=== PATIENT | male | born 1960 | race Caucasian/White ===

== ENCOUNTER 2017-07-24 20:03 | Inpatient (IN) | payer OTHER ==
[~2017-07-24] VITALS: Ht 182.9 cm; Wt 86.0 kg
[~2017-07-24 20:03] MED LIST: ALBU8.5H8 IH; AMLO10TA28 PO; AMLO5TAB16 PO; AZIT250T PO; LIDO700A5 TOP; METO50TA16 PO; MULT-933 PO; PRED10TA PO; etomidate 2mg/ml inj. ONE; rocuronium 10mg/ml inj IV ONE
[2017-07-24] MEDS ORDERED: normal saline 1000ML IV soln IVB ONE ×2 (20:35→22:35)
[2017-07-24] MEDS ORDERED: methylPREDNISolone sod succ 125mg/2ml vial IV ONE (20:35)
[2017-07-24] MEDS ORDERED: LORazepam 2 mg/ml vial IV ONE (20:35)
[2017-07-24] MEDS ORDERED: ipratropium 0.5 MG/2.5ML nebule IH ONE (20:35)
[2017-07-24] MEDS ORDERED: CARV-50 PO (20:54)
[2017-07-24] MEDS ORDERED: ONDA4TAB9 SL (20:54)
[2017-07-24] MEDS ORDERED: METO100T14 PO (20:54)
[2017-07-24] MEDS ORDERED: CETI10TA15 PO (20:54)
[2017-07-24 21:02] LABS: PROTHROMBIN TIME 10.3 SECONDS (9.0-12.0)
[2017-07-24 21:06] LABS: BASOPHILS # (AUTO) 0.1 X10'3 (0-0.2); BASOPHILS % (AUTO) 0.4 % (0-1); EOSINOPHILS # (AUTO) 0.1 X10'3 (0-0.9); EOSINOPHILS % (AUTO) 0.7 % (0-6); HEMATOCRIT 46.3 % (42.0-52.0); HEMOGLOBIN 15.6 g/dl (14.0-17.9); LYMPHOCYTES # (AUTO) 2.9 X10'3 (1.1-4.8); LYMPHOCYTES % (AUTO) 14.9 % (21-51); MEAN CORPUSCULAR HEMOGLOBIN 35.8 PG (27.0-31.0); MEAN CORPUSCULAR HGB CONC 33.7 % (33.0-36.5); MEAN CORPUSCULAR VOLUME 106.4 FL (78-98); MEAN PLATELET VOLUME 7.3 FL (7.4-10.4); MONOCYTES # (AUTO) 1.7 X10'3 (0-0.9); MONOCYTES % (AUTO) 8.5 % (2-12); NEUTROPHILS # (AUTO) 14.8 X10'3 (1.8-7.7); NEUTROPHILS % (AUTO) 75.5 % (42-75); PLATELET COUNT 302 X10'3 (140-440); RED BLOOD COUNT 4.35 X10'6 (4.70-6.10); RED CELL DISTRIBUTION WIDTH 15.8 % (11.5-14.5); WHITE BLOOD COUNT 19.7 X10'3 (4.5-11.0)
[2017-07-24] MEDS ORDERED: ipratropium/albuterol 3ml nebule NEB ONE (21:10)
[2017-07-24 21:19] LABS: ALANINE AMINOTRANSFERASE 295 U/L (12-78); ALBUMIN 3.7 G/DL (3.4-5.0); ALBUMIN/GLOBULIN RATIO 0.9 (1.1-1.5); ALKALINE PHOSPHATASE 125 IU/L (46-116); ANION GAP 5 (8-16); ASPARTATE AMINO TRANSFERASE 213 U/L (10-37); BILIRUBIN,TOTAL 0.4 MG/DL (0.1-1.0); BLOOD UREA NITROGEN 28 MG/DL (7-18); BUN/CREATININE RATIO 23.7 (5.4-32.0); CALCIUM 8.4 MG/DL (8.5-10.1); CHLORIDE 102 MMOL/L (99-107); CREATININE 1.18 MG/DL (0.60-1.10); ETHANOL 0.123 GM/DL (0.0-0.010); GLUCOSE 105 MG/DL (70-104); MAGNESIUM 2.1 MG/DL (1.5-2.4); SODIUM 141 MMOL/L (135-145); TOTAL CARBON DIOXIDE 34.3 MMOL/L (24-32); TOTAL PROTEIN 7.6 G/DL (6.4-8.2); eGFR 63 ML/MIN
[2017-07-24] MEDS ORDERED: naloxone 0.4 mg/ml inj IV ONE ×3 (22:05→22:15)
[2017-07-24 22:11] LABS: ABG BASE EXCESS -1.1 mmol/L (-2.0-3.0); ABG HCO3 30.4 mmol/L (22.0-26.0); ABG OXYGEN SATURATION 94.3 % (95-98); ABG PCO2 (T) 86.7 mmHg (35.0-48.0); ABG PH (T) 7.162 (7.350-7.450); ABG PO2 (T) 83.5 mmHg (83-108); ALLEN'S TEST Positive; FCOHb 1.4 % (0.5-1.5); FLOW 3 L/min; FMetHb 0.2 % (0.3-1.12); FO2Hb 92.8 % (94-100); PATIENT TEMPERATURE 36.9; TOTAL HEMOGLOBIN 15.2 G/dl (14.0-18.0)
[2017-07-24] MEDS ORDERED: succinylcholine 20mg/ml inj IV ONE (22:15)
[2017-07-24] MEDS ORDERED: midazolam 100mg in NS 100ml 100 ML IV PRN (22:17)
[2017-07-24] MEDS ORDERED: hydrALAZINE 20mg/ml inj. IV ONE (22:20)
[2017-07-24] MEDS ORDERED: midazolam 2 mg/2 ml injection IV PRN (22:20)
[2017-07-24] MEDS ORDERED: vancomycin/NS 1 GM ADD-VANTAGE 250 ML X 1 DOSE IV ONE (22:30)
[2017-07-24] MEDS ORDERED: CefTRIAXone 2gm/NS 100ml IVPB 100 ML IV ONE (22:30)
[2017-07-24] MEDS ORDERED: clindamycin-Cleocin 900mg/D5W 50 ML IV ONE (22:35)
[2017-07-24] MEDS ORDERED: morphine 4 MG/ML inj SYRINge IV ONE ×2 (22:45→23:05)
[2017-07-24] MEDS ORDERED: labetalol 20mg/4ml (5mg/ml) syringe IV PRN (22:50)
[2017-07-24] MEDS ORDERED: VECuronium br 10mg inj. IV ONE (22:50)
[2017-07-24 23:01] LABS: CLARITY,URINE CLEAR (Clear); COLOR,URINE YELLOW (Yellow); GLUCOSE, URINE NEGATIVE (Neg); KETONES,URINE NEGATIVE (Neg); LEUKOCYTE ESTERASE ,URINE NEGATIVE (Neg); NITRITES, URINE NEGATIVE (Neg); OCCULT BLOOD,URINE TRACE-LYSED (Neg); PH,URINE 5.5 (4.8-8.0); PROTEIN,URINE 100 mg/dl (Neg); UROBILINOGEN,URINE 0.2 E.U/dL (0.2-1.0)
[2017-07-24 23:02] LABS: UA COLLECTION TYPE FOLEY CATH
[2017-07-24 23:08] LABS: WBC,URINE 0-4 /HPF (0-4)
[2017-07-24] MEDS: meropenem inj 500 MG in normal saline 100ml IV soln 100 ML IV SCH (23:08)
[2017-07-24 23:09] LABS: BACTERIA,URINE FEW /HPF (Neg)
[2017-07-24 23:10] LABS: AMORPHOUS URATES 2+; MUCUS STRANDS NONE SEEN /LPF (Neg); SQUAMOUS EPITHELIAL CELL,UR FEW /LPF (FEW); TRANSITIONAL EPI CELLS,URINE FEW /HPF
[2017-07-24 23:11] LABS: CELLULAR CAST 0-4 /LPF (NEGATIVE)
[2017-07-24 23:12] LABS: COARSE GRANULAR CAST 0-3 /LPF (NEGATIVE)
[2017-07-24 23:14] LABS: URINE AMPHETAMINE SCREEN POSITIVE (Neg); URINE BARBITUATE SCREEN NEGATIVE (Neg); URINE BENZODIAZEPINES SCREEN POSITIVE (Neg); URINE CANNABINOID SCREEN NEGATIVE (Neg); URINE COCAINE SCREEN NEGATIVE (Neg); URINE METHADONE SCREEN POSITIVE (Neg); URINE OPIATE SCREEN POSITIVE (Neg); URINE PHENCYCLIDINE SCREEN NEGATIVE (Neg)
[2017-07-24] MEDS ORDERED: FENTANYL-0.9 % NACL/PF 100 ML IV PRN (23:20)
[2017-07-24] MEDS ORDERED: fentaNYL/PF 50MCG/1 ML 2ML syringe IV PRN (23:20)
[2017-07-24] MEDS ORDERED: magnesium 4gm in 100ml NS 100 ML IV PRN (23:45)
[2017-07-24] MEDS ORDERED: magnesium Cl slow-release 64mg tablet PO PRN (23:45)
[2017-07-24] MEDS ORDERED: potassium Cl 20 mEq SR tablet PO PRN ×2 (23:45)
[2017-07-24] MEDS ORDERED: magnesium 2GM in 50ml NS 50 ML IV PRN (23:45)
[2017-07-24] MEDS ORDERED: dextrose 50%-water 50ml dispensing syringe IV PRN (23:45)
[2017-07-24] MEDS ORDERED: potassium Cl 40MEQ/NS 500ml 500 ML IV PRN ×2 (23:45)
[2017-07-24] MEDS: folic acid inj. 2 MG, thiamine inj. 100 MG, MVI, adult No.4 with vit. K 10 ML in dextro... IV SCH ×4 (23:45)
[2017-07-25] VITALS (22 sets, daily range): BP systolic 108–187; BP diastolic 70–105
[2017-07-25 00:15] LABS: ABG BASE EXCESS -5.9 mmol/L (-2.0-3.0); ABG HCO3 25.3 mmol/L (22.0-26.0); ABG OXYGEN SATURATION 96.9 % (95-98); ABG PH (T) 7.132 (7.350-7.450); ABG PO2 (T) 106.6 mmHg (83-108); ALLEN'S TEST Positive; FCOHb 1.6 % (0.5-1.5); FMetHb 0.2 % (0.3-1.12); FO2Hb 95.2 % (94-100); MINUTE VOLUME 10 L/min; PATIENT TEMPERATURE 36.4; PEEP 5 cm H2O; RESPIRATORY RATE 20 b/min; RESPIRATORY RATE (OBSERVED) 20 b/min; TIDAL VOLUME 450 mL; TOTAL HEMOGLOBIN 14.7 G/dl (14.0-18.0)
[2017-07-25] MEDS ORDERED: fentaNYL/PF 50MCG/1 ML 2ML syringe IV PRN (00:15)
[2017-07-25] MEDS ORDERED: VECuronium br 10mg inj. IV ONE ×2 (00:15→00:35)
[2017-07-25] MEDS ORDERED: midazolam 2 mg/2 ml injection IV ONE (00:15)
[2017-07-25] MEDS: ipratropium/albuterol 3ml nebule NEB SCH ×5 (00:56→19:14)
[2017-07-25] MEDS: normal saline 1000ml 1,000 ML IV SCH ×2 (01:51→04:30)
[2017-07-25] MEDS: pantoprazole 40 MG vial IV SCH ×2 (01:59→08:30)
[2017-07-25] MEDS: meropenem inj 500 MG in normal saline 100ml IV soln 100 ML IV SCH ×2 (02:00→08:30)
[2017-07-25] MEDS ORDERED: clindamycin 600mg/D5W 50ml 50 ML IV SCH (02:00)
[2017-07-25] MEDS ORDERED: levoFLOXACIN-Levaquin 750MG/D5 150 ML IV ONE (02:15)
[2017-07-25 03:35] LABS: ABG BASE EXCESS 0.6 mmol/L (-2.0-3.0); ABG PCO2 (T) 58.7 mmHg (35.0-48.0); ABG PH (T) 7.303 (7.350-7.450); ABG PO2 (T) 100.1 mmHg (83-108); ALLEN'S TEST Positive; FCOHb 0.7 % (0.5-1.5); FMetHb 0.1 % (0.3-1.12); FO2Hb 97.2 % (94-100); MINUTE VOLUME 12 L/min; PATIENT TEMPERATURE 35.4; PEEP 5 cm H2O; RESPIRATORY RATE 24 b/min; RESPIRATORY RATE (OBSERVED) 24 b/min; TIDAL VOLUME 450 mL; TOTAL HEMOGLOBIN 14.8 G/dl (14.0-18.0)
[2017-07-25] MEDS: albuterol 2.5 MG/3 ML nebule NEB PRN ×2 (03:42→23:17)
[2017-07-25] MEDS: midazolam 100mg in NS 100ml 100 ML IV PRN ×4 (04:30→22:46)
[2017-07-25] MEDS: FENTANYL-0.9 % NACL/PF 100 ML IV PRN ×3 (04:36→19:19)
[2017-07-25 05:48] LABS: BASOPHILS % (AUTO) 0.1 % (0-1); EOSINOPHILS # (AUTO) 0.1 X10'3 (0-0.9); HEMATOCRIT 41.7 % (42.0-52.0); HEMOGLOBIN 14.1 g/dl (14.0-17.9); LYMPHOCYTES # (AUTO) 0.5 X10'3 (1.1-4.8); LYMPHOCYTES % (AUTO) 3.4 % (21-51); MEAN CORPUSCULAR HEMOGLOBIN 35.9 PG (27.0-31.0); MEAN CORPUSCULAR HGB CONC 33.8 % (33.0-36.5); MEAN CORPUSCULAR VOLUME 106.2 FL (78-98); MEAN PLATELET VOLUME 7.4 FL (7.4-10.4); MONOCYTES # (AUTO) 0.4 X10'3 (0-0.9); MONOCYTES % (AUTO) 2.6 % (2-12); NEUTROPHILS % (AUTO) 92.9 % (42-75); PLATELET COUNT 180 X10'3 (140-440); RED BLOOD COUNT 3.92 X10'6 (4.70-6.10); RED CELL DISTRIBUTION WIDTH 15.6 % (11.5-14.5); WHITE BLOOD COUNT 15.1 X10'3 (4.5-11.0)
[2017-07-25 05:59] LABS: PARTIAL THROMBOPLASTIN TIME 22 SECONDS (22-32); PROTHROMBIN TIME 10.5 SECONDS (9.0-12.0)
[2017-07-25 06:10] LABS: ALANINE AMINOTRANSFERASE 398 U/L (12-78); ALBUMIN 2.8 G/DL (3.4-5.0); ALBUMIN/GLOBULIN RATIO 0.9 (1.1-1.5); ALKALINE PHOSPHATASE 96 IU/L (46-116); ANION GAP 7 (8-16); ASPARTATE AMINO TRANSFERASE 401 U/L (10-37); BILIRUBIN,TOTAL 0.7 MG/DL (0.1-1.0); BLOOD UREA NITROGEN 27 MG/DL (7-18); BUN/CREATININE RATIO 26.2 (5.4-32.0); CALCIUM 7.8 MG/DL (8.5-10.1); CHLORIDE 106 MMOL/L (99-107); CREATININE 1.03 MG/DL (0.60-1.10); GLUCOSE 129 MG/DL (70-104); MAGNESIUM 1.9 MG/DL (1.5-2.4); POTASSIUM 4.4 MMOL/L (3.5-5.1); SODIUM 143 MMOL/L (135-145); TOTAL CARBON DIOXIDE 30.4 MMOL/L (24-32); TOTAL PROTEIN 5.9 G/DL (6.4-8.2); TROPONIN I < 0.04 NG/ML (0.0-0.05); eGFR 74 ML/MIN
[2017-07-25] MEDS: lactobacillus rhamnosus 10,000 MMU CELLS/CAPSULE PO SCH ×2 (08:29→16:45)
[2017-07-25] MEDS: heparin, porcine 5000 units/ml vial SQ SCH ×2 (08:30→21:05)
[2017-07-25] MEDS: docusate sod 100mg capsule PO SCH ×2 (08:31→21:05)
[2017-07-25] MEDS: methylPREDNISolone sod succ 125mg/2ml vial IV SCH ×3 (08:31→21:01)
[2017-07-25] MEDS: levoFLOXACIN-Levaquin 750MG/D5 150 ML IV SCH (09:19)
[2017-07-25] MEDS: vancomycin inj 1,250 MG in normal saline 250ml IV soln 250 ML IV SCH ×2 (10:40→17:08)
[2017-07-25] MEDS: folic acid inj. 2 MG, thiamine inj. 100 MG, MVI, adult No.4 with vit. K 10 ML in dextro... IV SCH ×4 (14:30)
[2017-07-25] MEDS: metoprolol tartrate 50mg tablet PO SCH ×2 (17:36→20:00)
[2017-07-25] MEDS: carVEDilol 12.5mg tablet PO SCH ×2 (17:36→20:00)
[2017-07-25] MEDS ORDERED: BUDE10.2 INH (17:49)
[2017-07-25] MEDS ORDERED: BUDE10.22 INH (17:50)
[2017-07-25] MEDS ORDERED: PRED5TAB PO (17:53)
[2017-07-25] MEDS ORDERED: levoFLOXACIN-Levaquin 750MG/D5 150 ML IV SCH (21:00)
[2017-07-25] MEDS ORDERED: enalaprilat dihydrate 2.5mg/2ml vial IV ONE (23:00)
[2017-07-26] VITALS (23 sets, daily range): BP systolic 137–183; BP diastolic 76–105
[2017-07-26] MEDS: FENTANYL-0.9 % NACL/PF 100 ML IV PRN ×5 (00:29→18:11)
[2017-07-26] MEDS: vancomycin inj 1,250 MG in normal saline 250ml IV soln 250 ML IV SCH (03:19)
[2017-07-26] MEDS: methylPREDNISolone sod succ 125mg/2ml vial IV SCH ×4 (03:19→21:33)
[2017-07-26] MEDS: mineral oil/petrolatum ophthal oint EACHEYE SCH ×4 (03:19→21:36)
[2017-07-26] MEDS: albuterol 2.5 MG/3 ML nebule NEB PRN ×2 (03:35→23:05)
[2017-07-26] MEDS: midazolam 100mg in NS 100ml 100 ML IV PRN ×7 (03:38→23:42)
[2017-07-26 03:50] LABS: ABG BASE EXCESS 2.4 mmol/L (-2.0-3.0); ABG OXYGEN SATURATION 96.6 % (95-98); ABG PCO2 (T) 50.8 mmHg (35.0-48.0); ABG PH (T) 7.371 (7.350-7.450); ABG PO2 (T) 84.9 mmHg (83-108); ALLEN'S TEST Positive; FCOHb 0.7 % (0.5-1.5); FMetHb 0.2 % (0.3-1.12); FO2Hb 95.7 % (94-100); MINUTE VOLUME 11 L/min; PATIENT TEMPERATURE 36.3; PEEP 5 cm H2O; RESPIRATORY RATE 24 b/min; RESPIRATORY RATE (OBSERVED) 24 b/min; TIDAL VOLUME 400 mL; TOTAL HEMOGLOBIN 14.7 G/dl (14.0-18.0)
[2017-07-26] MEDS ORDERED: enalaprilat dihydrate 2.5mg/2ml vial IV ONE (05:00)
[2017-07-26] MEDS: ipratropium/albuterol 3ml nebule NEB SCH ×4 (07:04→19:37)
[2017-07-26 07:06] LABS: ALANINE AMINOTRANSFERASE 274 U/L (12-78); ALBUMIN 2.7 G/DL (3.4-5.0); ALBUMIN/GLOBULIN RATIO 0.8 (1.1-1.5); ALKALINE PHOSPHATASE 90 IU/L (46-116); ANION GAP 7 (8-16); ASPARTATE AMINO TRANSFERASE 105 U/L (10-37); BILIRUBIN,TOTAL 0.6 MG/DL (0.1-1.0); BLOOD UREA NITROGEN 25 MG/DL (7-18); BUN/CREATININE RATIO 29.4 (5.4-32.0); CALCIUM 8.1 MG/DL (8.5-10.1); CHLORIDE 104 MMOL/L (99-107); CREATININE 0.85 MG/DL (0.60-1.10); GLUCOSE 126 MG/DL (70-104); MAGNESIUM 2.1 MG/DL (1.5-2.4); SODIUM 139 MMOL/L (135-145); TOTAL CARBON DIOXIDE 27.9 MMOL/L (24-32); eGFR > 90 ML/MIN
[2017-07-26 07:15] LABS: BASOPHILS % (AUTO) 0.2 % (0-1); EOSINOPHILS # (AUTO) 0.1 X10'3 (0-0.9); EOSINOPHILS % (AUTO) 0.6 % (0-6); HEMATOCRIT 42.4 % (42.0-52.0); HEMOGLOBIN 14.4 g/dl (14.0-17.9); LYMPHOCYTES # (AUTO) 0.4 X10'3 (1.1-4.8); LYMPHOCYTES % (AUTO) 4.1 % (21-51); MEAN CORPUSCULAR HEMOGLOBIN 35.7 PG (27.0-31.0); MEAN CORPUSCULAR HGB CONC 33.9 % (33.0-36.5); MEAN CORPUSCULAR VOLUME 105.4 FL (78-98); MEAN PLATELET VOLUME 7.8 FL (7.4-10.4); MONOCYTES # (AUTO) 0.3 X10'3 (0-0.9); MONOCYTES % (AUTO) 3.5 % (2-12); NEUTROPHILS % (AUTO) 91.6 % (42-75); PLATELET COUNT 146 X10'3 (140-440); RED BLOOD COUNT 4.02 X10'6 (4.70-6.10); RED CELL DISTRIBUTION WIDTH 15.1 % (11.5-14.5); WHITE BLOOD COUNT 9.8 X10'3 (4.5-11.0)
[2017-07-26 07:16] LABS: POTASSIUM 4.5 MMOL/L (3.5-5.1)
[2017-07-26] MEDS: metoprolol tartrate 50mg tablet PO SCH ×2 (07:48→20:16)
[2017-07-26] MEDS: pantoprazole 40 MG vial IV SCH (07:48)
[2017-07-26] MEDS: carVEDilol 12.5mg tablet PO SCH ×2 (07:48→20:16)
[2017-07-26] MEDS: lactobacillus rhamnosus 10,000 MMU CELLS/CAPSULE PO SCH ×2 (07:49→17:59)
[2017-07-26] MEDS: levoFLOXACIN-Levaquin 750MG/D5 150 ML IV SCH (07:49)
[2017-07-26] MEDS: heparin, porcine 5000 units/ml vial SQ SCH ×2 (07:51→20:20)
[2017-07-26 08:22] LABS: PARTIAL THROMBOPLASTIN TIME 21 SECONDS (22-32); PROTHROMBIN TIME 10.3 SECONDS (9.0-12.0)
[2017-07-26] MEDS ORDERED: VANCOMYCIN LEVEL IV ONE (09:30)
[2017-07-26] MEDS: folic acid inj. 2 MG, thiamine inj. 100 MG, MVI, adult No.4 with vit. K 10 ML in dextro... IV SCH ×4 (09:34)
[2017-07-26] MEDS: docusate sodium 100mg/10ml UD cup PO SCH (20:15)
[2017-07-27] VITALS (23 sets, daily range): BP systolic 123–188; BP diastolic 51–98
[2017-07-27] MEDS: FENTANYL-0.9 % NACL/PF 100 ML IV PRN ×5 (00:15→20:17)
[2017-07-27] MEDS: albuterol 2.5 MG/3 ML nebule NEB PRN (03:24)
[2017-07-27 03:26] LABS: ABG HCO3 26.3 mmol/L (22.0-26.0); ABG OXYGEN SATURATION 95.6 % (95-98); ABG PCO2 (T) 43.4 mmHg (35.0-48.0); ABG PH (T) 7.398 (7.350-7.450); ABG PO2 (T) 77.6 mmHg (83-108); ALLEN'S TEST Positive; FCOHb 0.5 % (0.5-1.5); FO2Hb 95.1 % (94-100); MINUTE VOLUME 12 L/min; PATIENT TEMPERATURE 36.5; PEEP 5 cm H2O; RESPIRATORY RATE 24 b/min; RESPIRATORY RATE (OBSERVED) 24 b/min; TIDAL VOLUME 400 mL; TOTAL HEMOGLOBIN 14.2 G/dl (14.0-18.0)
[2017-07-27 06:06] LABS: BASOPHILS % (AUTO) 0 % (0-1); EOSINOPHILS % (AUTO) 0 % (0-6); HEMATOCRIT 40.6 % (42.0-52.0); LYMPHOCYTES # (AUTO) 0.5 X10'3 (1.1-4.8); LYMPHOCYTES % (AUTO) 3.3 % (21-51); MEAN CORPUSCULAR HEMOGLOBIN 35.9 PG (27.0-31.0); MEAN CORPUSCULAR HGB CONC 34.4 % (33.0-36.5); MEAN CORPUSCULAR VOLUME 104.4 FL (78-98); MEAN PLATELET VOLUME 7.9 FL (7.4-10.4); MONOCYTES # (AUTO) 0.3 X10'3 (0-0.9); MONOCYTES % (AUTO) 1.9 % (2-12); NEUTROPHILS # (AUTO) 13.3 X10'3 (1.8-7.7); NEUTROPHILS % (AUTO) 94.8 % (42-75); PLATELET COUNT 182 X10'3 (140-440); RED BLOOD COUNT 3.89 X10'6 (4.70-6.10)
[2017-07-27 06:11] LABS: PARTIAL THROMBOPLASTIN TIME 22 SECONDS (22-32)
[2017-07-27 06:16] LABS: ALANINE AMINOTRANSFERASE 202 U/L (12-78); ALBUMIN 2.5 G/DL (3.4-5.0); ALBUMIN/GLOBULIN RATIO 0.8 (1.1-1.5); ALKALINE PHOSPHATASE 87 IU/L (46-116); ANION GAP 7 (8-16); ASPARTATE AMINO TRANSFERASE 51 U/L (10-37); BILIRUBIN,TOTAL 0.5 MG/DL (0.1-1.0); BLOOD UREA NITROGEN 31 MG/DL (7-18); BUN/CREATININE RATIO 35.6 (5.4-32.0); CALCIUM 8.5 MG/DL (8.5-10.1); CHLORIDE 103 MMOL/L (99-107); CREATININE 0.87 MG/DL (0.60-1.10); GLUCOSE 140 MG/DL (70-104); MAGNESIUM 2.3 MG/DL (1.5-2.4); POTASSIUM 4.3 MMOL/L (3.5-5.1); PREALBUMIN 30.1 MG/DL (19-36); SODIUM 137 MMOL/L (135-145); TOTAL CARBON DIOXIDE 27.5 MMOL/L (24-32); TOTAL PROTEIN 5.8 G/DL (6.4-8.2); eGFR 90 ML/MIN
[2017-07-27] MEDS: midazolam 100mg in NS 100ml 100 ML IV PRN ×4 (06:47→20:16)
[2017-07-27] MEDS: ipratropium/albuterol 3ml nebule NEB SCH ×4 (07:54→18:48)
[2017-07-27] MEDS: methylPREDNISolone sod succ 125mg/2ml vial IV SCH ×4 (08:00→20:33)
[2017-07-27] MEDS: mineral oil/petrolatum ophthal oint EACHEYE SCH ×4 (08:00→20:00)
[2017-07-27] MEDS: folic acid inj. 2 MG, thiamine inj. 100 MG, MVI, adult No.4 with vit. K 10 ML in dextro... IV SCH ×4 (08:05)
[2017-07-27] MEDS: docusate sodium 100mg/10ml UD cup PO SCH ×2 (08:06→20:23)
[2017-07-27] MEDS: levoFLOXACIN-Levaquin 750MG/D5 150 ML IV SCH (08:06)
[2017-07-27] MEDS: lactobacillus rhamnosus 10,000 MMU CELLS/CAPSULE PO SCH ×2 (08:08→16:21)
[2017-07-27] MEDS: metoprolol tartrate 50mg tablet PO SCH ×2 (08:08→20:26)
[2017-07-27] MEDS: carVEDilol 12.5mg tablet PO SCH ×2 (08:08→20:18)
[2017-07-27] MEDS: heparin, porcine 5000 units/ml vial SQ SCH ×2 (08:19→20:31)
[2017-07-27] MEDS: pantoprazole 40 MG vial IV SCH (08:51)
[2017-07-27] MEDS: chlordiazePOXIDE 25mg capsule PO SCH (15:26)
[2017-07-28] VITALS (23 sets, daily range): BP systolic 125–196; BP diastolic 72–106
[2017-07-28] MEDS: chlordiazePOXIDE 25mg capsule PO SCH ×4 (01:10→23:51)
[2017-07-28] MEDS: methylPREDNISolone sod succ 125mg/2ml vial IV SCH ×2 (02:20→08:28)
[2017-07-28] MEDS: mineral oil/petrolatum ophthal oint EACHEYE SCH ×4 (02:29→20:57)
[2017-07-28] MEDS: FENTANYL-0.9 % NACL/PF 100 ML IV PRN ×6 (03:29→23:37)
[2017-07-28] MEDS: midazolam 100mg in NS 100ml 100 ML IV PRN ×5 (03:30→20:57)
[2017-07-28 03:51] LABS: ABG BASE EXCESS 0.4 mmol/L (-2.0-3.0); ABG HCO3 26.7 mmol/L (22.0-26.0); ABG OXYGEN SATURATION 93.5 % (95-98); ABG PCO2 (T) 48.3 mmHg (35.0-48.0); ABG PH (T) 7.358 (7.350-7.450); ALLEN'S TEST Positive; FCOHb 0.3 % (0.5-1.5); FMetHb 0.2 % (0.3-1.12); MINUTE VOLUME 12 L/min; PATIENT TEMPERATURE 36.4; PEEP 5 cm H2O; RESPIRATORY RATE 24 b/min; RESPIRATORY RATE (OBSERVED) 24 b/min; TIDAL VOLUME 400 mL; TOTAL HEMOGLOBIN 14.7 G/dl (14.0-18.0)
[2017-07-28 06:45] LABS: PARTIAL THROMBOPLASTIN TIME 22 SECONDS (22-32)
[2017-07-28 06:48] LABS: BASOPHILS % (AUTO) 0 % (0-1); EOSINOPHILS % (AUTO) 0 % (0-6); HEMATOCRIT 40.5 % (42.0-52.0); LYMPHOCYTES # (AUTO) 0.4 X10'3 (1.1-4.8); LYMPHOCYTES % (AUTO) 2.5 % (21-51); MEAN CORPUSCULAR HGB CONC 34.5 % (33.0-36.5); MEAN CORPUSCULAR VOLUME 104.4 FL (78-98); MEAN PLATELET VOLUME 7.9 FL (7.4-10.4); MONOCYTES # (AUTO) 0.3 X10'3 (0-0.9); MONOCYTES % (AUTO) 2.2 % (2-12); NEUTROPHILS # (AUTO) 13.6 X10'3 (1.8-7.7); NEUTROPHILS % (AUTO) 95.3 % (42-75); PLATELET COUNT 176 X10'3 (140-440); RED BLOOD COUNT 3.88 X10'6 (4.70-6.10); RED CELL DISTRIBUTION WIDTH 15.4 % (11.5-14.5); WHITE BLOOD COUNT 14.3 X10'3 (4.5-11.0)
[2017-07-28 07:06] LABS: ALANINE AMINOTRANSFERASE 168 U/L (12-78); ALBUMIN 2.4 G/DL (3.4-5.0); ALBUMIN/GLOBULIN RATIO 0.8 (1.1-1.5); ALKALINE PHOSPHATASE 86 IU/L (46-116); ANION GAP 7 (8-16); ASPARTATE AMINO TRANSFERASE 45 U/L (10-37); BILIRUBIN,TOTAL 0.4 MG/DL (0.1-1.0); BLOOD UREA NITROGEN 40 MG/DL (7-18); BUN/CREATININE RATIO 44.4 (5.4-32.0); CALCIUM 8.4 MG/DL (8.5-10.1); CHLORIDE 104 MMOL/L (99-107); GLUCOSE 146 MG/DL (70-104); MAGNESIUM 2.4 MG/DL (1.5-2.4); POTASSIUM 4.4 MMOL/L (3.5-5.1); SODIUM 137 MMOL/L (135-145); TOTAL CARBON DIOXIDE 26.5 MMOL/L (24-32); TOTAL PROTEIN 5.6 G/DL (6.4-8.2); eGFR 87 ML/MIN
[2017-07-28] MEDS: ipratropium/albuterol 3ml nebule NEB SCH ×4 (07:22→18:39)
[2017-07-28] MEDS ORDERED: multivitamin oral liquid (Certavite) 5ml cup OGT SCH (08:00)
[2017-07-28 08:24] LABS: TOTAL CELLS COUNTED 100
[2017-07-28 08:25] LABS: ANISOCYTOSIS 1+; PLATELET ESTIMATE NORMAL; POLYCHROMASIA 1+; TARGET CELLS 1+; TOXIC GRANULATION 1+
[2017-07-28] MEDS: folic acid 1mg tablet OGT SCH (08:25)
[2017-07-28] MEDS: carVEDilol 12.5mg tablet PO SCH ×2 (08:25→20:56)
[2017-07-28] MEDS: thiamine 100mg tablet OGT SCH (08:25)
[2017-07-28] MEDS: docusate sodium 100mg/10ml UD cup PO SCH ×2 (08:26→20:56)
[2017-07-28] MEDS: lactobacillus rhamnosus 10,000 MMU CELLS/CAPSULE PO SCH ×2 (08:26→20:56)
[2017-07-28] MEDS: heparin, porcine 5000 units/ml vial SQ SCH ×2 (08:28→20:55)
[2017-07-28] MEDS: pantoprazole 40 MG vial IV SCH (08:28)
[2017-07-28] MEDS: metoprolol tartrate 50mg tablet PO SCH ×2 (08:28→20:56)
[2017-07-28] MEDS: levoFLOXACIN-Levaquin 750MG/D5 150 ML IV SCH (08:29)
[2017-07-28] MEDS: multivitamins, therapeutics tablet PO SCH (14:21)
[2017-07-28] MEDS: methylPREDNISolone sod succ/PF 40mg inj. IV SCH ×2 (14:21→20:56)
[2017-07-29] VITALS (24 sets, daily range): BP systolic 124–197; BP diastolic 74–112
[2017-07-29] MEDS: midazolam 100mg in NS 100ml 100 ML IV PRN ×6 (00:06→23:43)
[2017-07-29] MEDS: methylPREDNISolone sod succ/PF 40mg inj. IV SCH ×4 (02:23→20:50)
[2017-07-29] MEDS: mineral oil/petrolatum ophthal oint EACHEYE SCH ×4 (02:23→20:50)
[2017-07-29] MEDS: FENTANYL-0.9 % NACL/PF 100 ML IV PRN ×4 (03:14→22:42)
[2017-07-29 03:41] LABS: ABG BASE EXCESS 1.3 mmol/L (-2.0-3.0); ABG HCO3 26.1 mmol/L (22.0-26.0); ABG OXYGEN SATURATION 94.9 % (95-98); ABG PCO2 (T) 40.8 mmHg (35.0-48.0); ABG PH (T) 7.421 (7.350-7.450); ABG PO2 (T) 73.2 mmHg (83-108); ALLEN'S TEST Positive; FCOHb 0.3 % (0.5-1.5); FMetHb 0.1 % (0.3-1.12); FO2Hb 94.5 % (94-100); MINUTE VOLUME 10 L/min; PATIENT TEMPERATURE 36.5; PEEP 5 cm H2O; RESPIRATORY RATE 24 b/min; RESPIRATORY RATE (OBSERVED) 24 b/min; TIDAL VOLUME 400 mL; TOTAL HEMOGLOBIN 14.7 G/dl (14.0-18.0)
[2017-07-29 05:20] LABS: BASOPHILS % (AUTO) 0.1 % (0-1); EOSINOPHILS # (AUTO) 0.1 X10'3 (0-0.9); EOSINOPHILS % (AUTO) 0.9 % (0-6); HEMATOCRIT 41.4 % (42.0-52.0); HEMOGLOBIN 14.3 g/dl (14.0-17.9); LYMPHOCYTES # (AUTO) 0.4 X10'3 (1.1-4.8); LYMPHOCYTES % (AUTO) 2.4 % (21-51); MEAN CORPUSCULAR HGB CONC 34.5 % (33.0-36.5); MEAN CORPUSCULAR VOLUME 104.5 FL (78-98); MEAN PLATELET VOLUME 7.7 FL (7.4-10.4); MONOCYTES # (AUTO) 0.4 X10'3 (0-0.9); MONOCYTES % (AUTO) 2.5 % (2-12); NEUTROPHILS # (AUTO) 14.2 X10'3 (1.8-7.7); NEUTROPHILS % (AUTO) 94.1 % (42-75); PLATELET COUNT 177 X10'3 (140-440); RED BLOOD COUNT 3.96 X10'6 (4.70-6.10); RED CELL DISTRIBUTION WIDTH 15.1 % (11.5-14.5); WHITE BLOOD COUNT 15.1 X10'3 (4.5-11.0)
[2017-07-29 05:51] LABS: PARTIAL THROMBOPLASTIN TIME 22 SECONDS (22-32)
[2017-07-29 05:56] LABS: ALANINE AMINOTRANSFERASE 146 U/L (12-78); ALBUMIN 2.4 G/DL (3.4-5.0); ALBUMIN/GLOBULIN RATIO 0.8 (1.1-1.5); ALKALINE PHOSPHATASE 84 IU/L (46-116); ANION GAP 5 (8-16); ASPARTATE AMINO TRANSFERASE 41 U/L (10-37); BILIRUBIN,TOTAL 0.4 MG/DL (0.1-1.0); BLOOD UREA NITROGEN 45 MG/DL (7-18); BUN/CREATININE RATIO 52.3 (5.4-32.0); CALCIUM 8.5 MG/DL (8.5-10.1); CHLORIDE 103 MMOL/L (99-107); CREATININE 0.86 MG/DL (0.60-1.10); GLUCOSE 146 MG/DL (70-104); MAGNESIUM 2.2 MG/DL (1.5-2.4); POTASSIUM 4.3 MMOL/L (3.5-5.1); SODIUM 137 MMOL/L (135-145); TOTAL CARBON DIOXIDE 28.6 MMOL/L (24-32); TOTAL PROTEIN 5.4 G/DL (6.4-8.2); eGFR > 90 ML/MIN
[2017-07-29] MEDS: metoprolol tartrate 50mg tablet PO SCH ×2 (07:27→20:49)
[2017-07-29] MEDS: levoFLOXACIN-Levaquin 750MG/D5 150 ML IV SCH (07:27)
[2017-07-29] MEDS: lactobacillus rhamnosus 10,000 MMU CELLS/CAPSULE PO SCH ×2 (07:27→20:50)
[2017-07-29] MEDS: folic acid 1mg tablet OGT SCH (07:27)
[2017-07-29] MEDS: chlordiazePOXIDE 25mg capsule PO SCH ×3 (07:27→20:49)
[2017-07-29] MEDS: carVEDilol 12.5mg tablet PO SCH ×2 (07:27→20:50)
[2017-07-29] MEDS: multivitamins, therapeutics tablet PO SCH (07:27)
[2017-07-29] MEDS: docusate sodium 100mg/10ml UD cup PO SCH ×2 (07:28→20:50)
[2017-07-29] MEDS: thiamine 100mg tablet OGT SCH (07:28)
[2017-07-29] MEDS: pantoprazole 40 MG vial IV SCH (07:28)
[2017-07-29] MEDS: heparin, porcine 5000 units/ml vial SQ SCH ×2 (07:30→20:50)
[2017-07-29] MEDS: ipratropium/albuterol 3ml nebule NEB SCH ×4 (07:54→18:39)
[2017-07-29] MEDS: propofol 1000mg/100ml bottle 100 ML IV PRN (10:28)
[2017-07-30] VITALS (24 sets, daily range): BP systolic 117–188; BP diastolic 72–107
[2017-07-30] MEDS: chlordiazePOXIDE 25mg capsule PO SCH ×4 (02:00→20:30)
[2017-07-30] MEDS: methylPREDNISolone sod succ/PF 40mg inj. IV SCH ×4 (02:00→20:31)
[2017-07-30] MEDS: mineral oil/petrolatum ophthal oint EACHEYE SCH ×4 (02:01→20:30)
[2017-07-30] MEDS: propofol 1000mg/100ml bottle 100 ML IV PRN ×4 (03:30→20:52)
[2017-07-30 03:40] LABS: ABG HCO3 24.8 mmol/L (22.0-26.0); ABG OXYGEN SATURATION 94.5 % (95-98); ABG PCO2 (T) 35.8 mmHg (35.0-48.0); ABG PH (T) 7.455 (7.350-7.450); ABG PO2 (T) 70.3 mmHg (83-108); ALLEN'S TEST Positive; FCOHb 0.3 % (0.5-1.5); FO2Hb 94.2 % (94-100); MINUTE VOLUME 10 L/min; PATIENT TEMPERATURE 36.1; PEEP 5 cm H2O; RESPIRATORY RATE 24 b/min; RESPIRATORY RATE (OBSERVED) 24 b/min; TIDAL VOLUME 400 mL; TOTAL HEMOGLOBIN 14.6 G/dl (14.0-18.0)
[2017-07-30] MEDS: midazolam 100mg in NS 100ml 100 ML IV PRN ×3 (03:56→17:33)
[2017-07-30 06:17] LABS: BASOPHILS % (AUTO) 0 % (0-1); EOSINOPHILS % (AUTO) 0 % (0-6); HEMATOCRIT 40.2 % (42.0-52.0); HEMOGLOBIN 13.8 g/dl (14.0-17.9); LYMPHOCYTES # (AUTO) 0.4 X10'3 (1.1-4.8); MEAN CORPUSCULAR HEMOGLOBIN 35.9 PG (27.0-31.0); MEAN CORPUSCULAR HGB CONC 34.3 % (33.0-36.5); MEAN CORPUSCULAR VOLUME 104.5 FL (78-98); MONOCYTES # (AUTO) 0.4 X10'3 (0-0.9); MONOCYTES % (AUTO) 3.4 % (2-12); NEUTROPHILS # (AUTO) 11.8 X10'3 (1.8-7.7); NEUTROPHILS % (AUTO) 93.6 % (42-75); PLATELET COUNT 159 X10'3 (140-440); RED BLOOD COUNT 3.84 X10'6 (4.70-6.10); RED CELL DISTRIBUTION WIDTH 15.7 % (11.5-14.5); WHITE BLOOD COUNT 12.7 X10'3 (4.5-11.0)
[2017-07-30 06:27] LABS: PARTIAL THROMBOPLASTIN TIME 20 SECONDS (22-32)
[2017-07-30 06:47] LABS: ALANINE AMINOTRANSFERASE 125 U/L (12-78); ALBUMIN 2.3 G/DL (3.4-5.0); ALBUMIN/GLOBULIN RATIO 0.8 (1.1-1.5); ALKALINE PHOSPHATASE 76 IU/L (46-116); ANION GAP 9 (8-16); ASPARTATE AMINO TRANSFERASE 31 U/L (10-37); BILIRUBIN,TOTAL 0.4 MG/DL (0.1-1.0); BLOOD UREA NITROGEN 41 MG/DL (7-18); BUN/CREATININE RATIO 54.7 (5.4-32.0); CALCIUM 8.2 MG/DL (8.5-10.1); CHLORIDE 103 MMOL/L (99-107); CREATININE 0.75 MG/DL (0.60-1.10); GLUCOSE 140 MG/DL (70-104); MAGNESIUM 2.3 MG/DL (1.5-2.4); POTASSIUM 4.4 MMOL/L (3.5-5.1); SODIUM 138 MMOL/L (135-145); TOTAL CARBON DIOXIDE 25.6 MMOL/L (24-32); TOTAL PROTEIN 5.3 G/DL (6.4-8.2); eGFR > 90 ML/MIN
[2017-07-30 07:24] LABS: PHOSPHORUS 3.5 MG/DL (2.3-4.5)
[2017-07-30] MEDS: ipratropium/albuterol 3ml nebule NEB SCH ×4 (07:42→18:26)
[2017-07-30] MEDS: pantoprazole 40 MG vial IV SCH (07:51)
[2017-07-30] MEDS: docusate sodium 100mg/10ml UD cup PO SCH ×2 (07:51→20:31)
[2017-07-30] MEDS: lactobacillus rhamnosus 10,000 MMU CELLS/CAPSULE PO SCH ×2 (07:52→20:30)
[2017-07-30] MEDS: metoprolol tartrate 50mg tablet PO SCH ×2 (07:52→20:30)
[2017-07-30] MEDS: heparin, porcine 5000 units/ml vial SQ SCH ×2 (07:52→20:31)
[2017-07-30] MEDS: carVEDilol 12.5mg tablet PO SCH ×2 (07:52→20:30)
[2017-07-30] MEDS: multivitamins, therapeutics tablet PO SCH (07:52)
[2017-07-30] MEDS: thiamine 100mg tablet OGT SCH (07:52)
[2017-07-30] MEDS: folic acid 1mg tablet OGT SCH (07:52)
[2017-07-30] MEDS: FENTANYL-0.9 % NACL/PF 100 ML IV PRN ×4 (08:27→22:04)
[2017-07-30] MEDS ORDERED: mineral oil/petrolatum ophthal oint EACHEYE SCH (14:00)
[2017-07-31] VITALS (30 sets, daily range): BP systolic 146–205; BP diastolic 82–117
[2017-07-31] MEDS: propofol 1000mg/100ml bottle 100 ML IV PRN ×2 (01:29→05:23)
[2017-07-31] MEDS: methylPREDNISolone sod succ/PF 40mg inj. IV SCH ×3 (02:07→19:11)
[2017-07-31] MEDS: chlordiazePOXIDE 25mg capsule PO SCH ×4 (02:07→19:07)
[2017-07-31] MEDS: midazolam 100mg in NS 100ml 100 ML IV PRN (02:08)
[2017-07-31] MEDS: FENTANYL-0.9 % NACL/PF 100 ML IV PRN ×2 (02:08→09:20)
[2017-07-31] MEDS: mineral oil/petrolatum ophthal oint EACHEYE SCH ×2 (02:15→08:12)
[2017-07-31 04:06] LABS: ABG BASE EXCESS 2.2 mmol/L (-2.0-3.0); ABG HCO3 25.5 mmol/L (22.0-26.0); ABG OXYGEN SATURATION 94.1 % (95-98); ABG PCO2 (T) 35.5 mmHg (35.0-48.0); ABG PH (T) 7.474 (7.350-7.450); ABG PO2 (T) 69.2 mmHg (83-108); ALLEN'S TEST Positive; FCOHb 0.4 % (0.5-1.5); FMetHb 0.2 % (0.3-1.12); FO2Hb 93.5 % (94-100); MINUTE VOLUME 10 L/min; PATIENT TEMPERATURE 36.8; PEEP 5 cm H2O; RESPIRATORY RATE 20 b/min; RESPIRATORY RATE (OBSERVED) 22 b/min; TIDAL VOLUME 400 mL; TOTAL HEMOGLOBIN 15.5 G/dl (14.0-18.0)
[2017-07-31 05:48] LABS: BASOPHILS % (AUTO) 0 % (0-1); EOSINOPHILS % (AUTO) 0 % (0-6); HEMATOCRIT 46.2 % (42.0-52.0); HEMOGLOBIN 15.7 g/dl (14.0-17.9); LYMPHOCYTES # (AUTO) 0.3 X10'3 (1.1-4.8); MEAN CORPUSCULAR HEMOGLOBIN 35.7 PG (27.0-31.0); MONOCYTES # (AUTO) 0.4 X10'3 (0-0.9); MONOCYTES % (AUTO) 2.5 % (2-12); NEUTROPHILS # (AUTO) 16.1 X10'3 (1.8-7.7); NEUTROPHILS % (AUTO) 95.5 % (42-75); PLATELET COUNT 197 X10'3 (140-440); RED CELL DISTRIBUTION WIDTH 15.2 % (11.5-14.5); WHITE BLOOD COUNT 16.8 X10'3 (4.5-11.0)
[2017-07-31 06:08] LABS: ALANINE AMINOTRANSFERASE 125 U/L (12-78); ALBUMIN 2.6 G/DL (3.4-5.0); ALBUMIN/GLOBULIN RATIO 0.8 (1.1-1.5); ALKALINE PHOSPHATASE 81 IU/L (46-116); ANION GAP 11 (8-16); ASPARTATE AMINO TRANSFERASE 31 U/L (10-37); BILIRUBIN,TOTAL 0.4 MG/DL (0.1-1.0); BLOOD UREA NITROGEN 45 MG/DL (7-18); BUN/CREATININE RATIO 58.4 (5.4-32.0); CALCIUM 8.4 MG/DL (8.5-10.1); CHLORIDE 102 MMOL/L (99-107); CREATININE 0.77 MG/DL (0.60-1.10); GLUCOSE 134 MG/DL (70-104); MAGNESIUM 2.4 MG/DL (1.5-2.4); POTASSIUM 4.3 MMOL/L (3.5-5.1); PREALBUMIN 44.6 MG/DL (19-36); SODIUM 139 MMOL/L (135-145); TOTAL CARBON DIOXIDE 26.2 MMOL/L (24-32); eGFR > 90 ML/MIN
[2017-07-31 06:26] LABS: PARTIAL THROMBOPLASTIN TIME 20 SECONDS (22-32); PROTHROMBIN TIME 9.9 SECONDS (9.0-12.0)
[2017-07-31] MEDS: ipratropium/albuterol 3ml nebule NEB SCH ×2 (06:59→10:48)
[2017-07-31] MEDS: docusate sodium 100mg/10ml UD cup PO SCH ×2 (08:11→19:07)
[2017-07-31] MEDS: heparin, porcine 5000 units/ml vial SQ SCH ×2 (08:11→19:11)
[2017-07-31] MEDS: pantoprazole 40 MG vial IV SCH (08:11)
[2017-07-31] MEDS: thiamine 100mg tablet OGT SCH (08:11)
[2017-07-31] MEDS: multivitamins, therapeutics tablet PO SCH (08:11)
[2017-07-31] MEDS: carVEDilol 12.5mg tablet PO SCH ×2 (08:11→19:20)
[2017-07-31] MEDS: folic acid 1mg tablet OGT SCH (08:12)
[2017-07-31] MEDS: lactobacillus rhamnosus 10,000 MMU CELLS/CAPSULE PO SCH ×2 (08:12→19:07)
[2017-07-31] MEDS: metoprolol tartrate 50mg tablet PO SCH ×2 (08:12→19:07)
[2017-07-31] MEDS ORDERED: levoFLOXACIN-Levaquin 500mg/D5 100 ML IV ONE (09:40)
[2017-07-31] MEDS: acetaminophen 325mg tablet PO PRN (16:59)
[2017-07-31] MEDS: HYDROcodone/acetaminophen 10/325mg tab PO PRN ×2 (19:07→22:47)
[2017-07-31] MEDS ORDERED: LORazepam 2 mg/ml vial IV ONE ×2 (20:00→21:15)
[2017-07-31] MEDS: enalaprilat dihydrate 2.5mg/2ml vial IV PRN (22:47)
[2017-07-31] MEDS ORDERED: hydrALAZINE 20mg/ml inj. IV ONE (23:15)
[2017-08-01] VITALS (20 sets, daily range): BP systolic 127–198; BP diastolic 79–112
[2017-08-01] MEDS ORDERED: hydrALAZINE 20mg/ml inj. IV ONE (01:00)
[2017-08-01] MEDS: chlordiazePOXIDE 25mg capsule PO SCH ×4 (01:07→19:33)
[2017-08-01] MEDS ORDERED: LORazepam 2 mg/ml vial IV ONE (01:50)
[2017-08-01] MEDS: HYDROcodone/acetaminophen 10/325mg tab PO PRN ×3 (03:05→19:53)
[2017-08-01 07:44] LABS: BASOPHILS # (AUTO) 0.1 X10'3 (0-0.2); BASOPHILS % (AUTO) 0.4 % (0-1); EOSINOPHILS % (AUTO) 0.2 % (0-6); HEMATOCRIT 47.8 % (42.0-52.0); HEMOGLOBIN 16.3 g/dl (14.0-17.9); LYMPHOCYTES # (AUTO) 1.1 X10'3 (1.1-4.8); LYMPHOCYTES % (AUTO) 6.4 % (21-51); MEAN CORPUSCULAR HEMOGLOBIN 35.8 PG (27.0-31.0); MEAN CORPUSCULAR HGB CONC 34.2 % (33.0-36.5); MEAN CORPUSCULAR VOLUME 104.6 FL (78-98); MEAN PLATELET VOLUME 7.4 FL (7.4-10.4); MONOCYTES # (AUTO) 0.2 X10'3 (0-0.9); MONOCYTES % (AUTO) 1.3 % (2-12); NEUTROPHILS # (AUTO) 16.5 X10'3 (1.8-7.7); NEUTROPHILS % (AUTO) 91.7 % (42-75); PLATELET COUNT 217 X10'3 (140-440); RED BLOOD COUNT 4.56 X10'6 (4.70-6.10); RED CELL DISTRIBUTION WIDTH 15.2 % (11.5-14.5)
[2017-08-01 07:54] LABS: PARTIAL THROMBOPLASTIN TIME 22 SECONDS (22-32)
[2017-08-01] MEDS: metoprolol tartrate 50mg tablet PO SCH ×2 (07:59→19:34)
[2017-08-01] MEDS ORDERED: levoFLOXACIN-Levaquin 500mg/D5 100 ML IV SCH (08:00)
[2017-08-01] MEDS: carVEDilol 12.5mg tablet PO SCH ×2 (08:01→19:33)
[2017-08-01 08:06] LABS: ALANINE AMINOTRANSFERASE 128 U/L (12-78); ALBUMIN 3.1 G/DL (3.4-5.0); ALBUMIN/GLOBULIN RATIO 0.9 (1.1-1.5); ALKALINE PHOSPHATASE 81 IU/L (46-116); ANION GAP 8 (8-16); ASPARTATE AMINO TRANSFERASE 47 U/L (10-37); BILIRUBIN,TOTAL 0.7 MG/DL (0.1-1.0); BLOOD UREA NITROGEN 36 MG/DL (7-18); BUN/CREATININE RATIO 40.4 (5.4-32.0); CALCIUM 8.6 MG/DL (8.5-10.1); CHLORIDE 97 MMOL/L (99-107); CREATININE 0.89 MG/DL (0.60-1.10); GLUCOSE 83 MG/DL (70-104); MAGNESIUM 2.2 MG/DL (1.5-2.4); POTASSIUM 3.8 MMOL/L (3.5-5.1); SODIUM 136 MMOL/L (135-145); TOTAL CARBON DIOXIDE 30.7 MMOL/L (24-32); TOTAL PROTEIN 6.7 G/DL (6.4-8.2); eGFR 88 ML/MIN
[2017-08-01] MEDS: cloNIDine 0.1 mg tablet PO SCH ×3 (08:24→23:24)
[2017-08-01] MEDS: lactobacillus rhamnosus 10,000 MMU CELLS/CAPSULE PO SCH ×2 (08:26→19:33)
[2017-08-01] MEDS: folic acid 1mg tablet OGT SCH (08:26)
[2017-08-01] MEDS: multivitamins, therapeutics tablet PO SCH (08:27)
[2017-08-01] MEDS: thiamine 100mg tablet OGT SCH (08:27)
[2017-08-01] MEDS: docusate sodium 100mg/10ml UD cup PO SCH ×2 (08:28→19:33)
[2017-08-01] MEDS: heparin, porcine 5000 units/ml vial SQ SCH ×2 (08:31→19:34)
[2017-08-01] MEDS: methylPREDNISolone sod succ/PF 40mg inj. IV SCH ×3 (08:36→23:24)
[2017-08-01] MEDS: pantoprazole 40 MG vial IV SCH (08:38)
[2017-08-01] MEDS ORDERED: lactulose 20gm/30ml cup PO ONE ×2 (10:40→17:00)
[2017-08-01 10:48] LABS: TOTAL CELLS COUNTED 100
[2017-08-01 10:49] LABS: PLATELET ESTIMATE NORMAL
[2017-08-01 10:51] LABS: TOXIC GRANULATION 3+; TOXIC VACUOLATION 2+
[2017-08-01 10:52] LABS: ANISOCYTOSIS FEW
[2017-08-02 02:05] VITALS: BP 168/91
[2017-08-02] MEDS: chlordiazePOXIDE 25mg capsule PO SCH ×5 (02:17→20:00)
[2017-08-02] MEDS: HYDROcodone/acetaminophen 10/325mg tab PO PRN (02:25)
[2017-08-02 04:53] VITALS: BP 136/72
[2017-08-02 05:33] LABS: BASOPHILS % (AUTO) 0.2 % (0-1); EOSINOPHILS # (AUTO) 0.1 X10'3 (0-0.9); EOSINOPHILS % (AUTO) 0.5 % (0-6); HEMATOCRIT 45.8 % (42.0-52.0); HEMOGLOBIN 15.6 g/dl (14.0-17.9); LYMPHOCYTES # (AUTO) 0.5 X10'3 (1.1-4.8); LYMPHOCYTES % (AUTO) 3.2 % (21-51); MEAN CORPUSCULAR VOLUME 103.2 FL (78-98); MEAN PLATELET VOLUME 7.5 FL (7.4-10.4); MONOCYTES # (AUTO) 0.5 X10'3 (0-0.9); MONOCYTES % (AUTO) 3.4 % (2-12); NEUTROPHILS # (AUTO) 15.2 X10'3 (1.8-7.7); NEUTROPHILS % (AUTO) 92.7 % (42-75); PLATELET COUNT 209 X10'3 (140-440); RED BLOOD COUNT 4.44 X10'6 (4.70-6.10); RED CELL DISTRIBUTION WIDTH 14.6 % (11.5-14.5); WHITE BLOOD COUNT 16.4 X10'3 (4.5-11.0)
[2017-08-02 05:40] LABS: PARTIAL THROMBOPLASTIN TIME 24 SECONDS (22-32)
[2017-08-02 05:46] LABS: ALANINE AMINOTRANSFERASE 105 U/L (12-78); ALBUMIN 2.7 G/DL (3.4-5.0); ALBUMIN/GLOBULIN RATIO 0.8 (1.1-1.5); ALKALINE PHOSPHATASE 75 IU/L (46-116); ANION GAP 8 (8-16); ASPARTATE AMINO TRANSFERASE 30 U/L (10-37); BILIRUBIN,TOTAL 0.6 MG/DL (0.1-1.0); BLOOD UREA NITROGEN 25 MG/DL (7-18); BUN/CREATININE RATIO 37.3 (5.4-32.0); CALCIUM 8.6 MG/DL (8.5-10.1); CHLORIDE 99 MMOL/L (99-107); CREATININE 0.67 MG/DL (0.60-1.10); GLUCOSE 104 MG/DL (70-104); MAGNESIUM 2.3 MG/DL (1.5-2.4); POTASSIUM 4.2 MMOL/L (3.5-5.1); SODIUM 136 MMOL/L (135-145); TOTAL CARBON DIOXIDE 29.3 MMOL/L (24-32); TOTAL PROTEIN 6.1 G/DL (6.4-8.2); eGFR > 90 ML/MIN
[2017-08-02] MEDS ORDERED: dextrose 15gm/59ml oral solution PO SCH (07:30)
[2017-08-02] MEDS ORDERED: dextrose 15gm/59ml oral solution PO ONE (07:30)
[2017-08-02] MEDS ORDERED: dextrose ORAL solution 15 GM/59 ML bottle PO SCH (07:45)
[2017-08-02] MEDS: docusate sodium 100mg/10ml UD cup PO SCH ×3 (08:00→20:00)
[2017-08-02] MEDS: carVEDilol 12.5mg tablet PO SCH ×3 (08:00→20:00)
[2017-08-02] MEDS: metoprolol tartrate 50mg tablet PO SCH ×3 (08:00→20:00)
[2017-08-02] MEDS: lactobacillus rhamnosus 10,000 MMU CELLS/CAPSULE PO SCH ×3 (08:00→20:00)
[2017-08-02] MEDS: cloNIDine 0.1 mg tablet PO SCH ×3 (08:00→16:00)
[2017-08-02 09:36] VITALS: BP 164/100
[2017-08-02] MEDS: thiamine 100mg tablet OGT SCH (09:38)
[2017-08-02] MEDS: methylPREDNISolone sod succ/PF 40mg inj. IV SCH (09:38)
[2017-08-02] MEDS: folic acid 1mg tablet OGT SCH (09:38)
[2017-08-02] MEDS: multivitamins, therapeutics tablet PO SCH (09:39)
[2017-08-02] MEDS: heparin, porcine 5000 units/ml vial SQ SCH ×2 (09:40→22:02)
[2017-08-02] MEDS ORDERED: levoFLOXACIN 500mg tablet PO SCH (11:00)
[2017-08-02 11:30] LABS: PLATELET ESTIMATE NORMAL; TOTAL CELLS COUNTED 100; TOXIC GRANULATION 2+; TOXIC VACUOLATION 1+
[2017-08-02 11:31] LABS: SCHISTOCYTES FEW
[2017-08-02] MEDS ORDERED: naloxone 0.4 mg/ml inj IV ONE (14:50)
[2017-08-02 14:51] LABS: CLARITY,URINE CLEAR (Clear); COLOR,URINE STRAW (Yellow); GLUCOSE, URINE NEGATIVE (Neg); KETONES,URINE NEGATIVE (Neg); LEUKOCYTE ESTERASE ,URINE NEGATIVE (Neg); NITRITES, URINE NEGATIVE (Neg); OCCULT BLOOD,URINE MODERATE (Neg); PROTEIN,URINE TRACE mg/dl (Neg); UROBILINOGEN,URINE 0.2 E.U/dL (0.2-1.0)
[2017-08-02 15:10] LABS: UA COLLECTION TYPE FOLEY CATH
[2017-08-02 15:11] LABS: SQUAMOUS EPITHELIAL CELL,UR FEW /LPF (FEW); WBC CLUMPS,URINE FEW /HPF (NEGATIVE)
[2017-08-02 15:12] LABS: BACTERIA,URINE FEW /HPF (Neg); WBC,URINE 0-4 /HPF (0-4)
[2017-08-02 16:10] VITALS: BP 192/121
[2017-08-02] MEDS: hydrALAZINE 20mg/ml inj. IV PRN ×2 (16:11→22:24)
[2017-08-02] MEDS: albuterol 2.5 MG/3 ML nebule NEB SCH ×3 (16:25→23:39)
[2017-08-02 18:39] VITALS: BP 137/99
[2017-08-02 23:00] VITALS: BP 193/99
[2017-08-03] VITALS (7 sets, daily range): BP systolic 90–204; BP diastolic 63–109
[2017-08-03] MEDS ORDERED: ziprasidone IM 20mg inj **IM only IM ONE (01:40)
[2017-08-03] MEDS: chlordiazePOXIDE 25mg capsule PO SCH ×4 (02:00→19:29)
[2017-08-03] MEDS: albuterol 2.5 MG/3 ML nebule NEB SCH ×6 (03:34→22:53)
[2017-08-03] MEDS: docusate sodium 100mg/10ml UD cup PO SCH ×2 (08:00→19:29)
[2017-08-03] MEDS: pantoprazole 40mg Tablet.DR PO SCH (08:10)
[2017-08-03] MEDS: methylPREDNISolone sod succ/PF 40mg inj. IV SCH (08:10)
[2017-08-03] MEDS: thiamine 100mg tablet OGT SCH (08:11)
[2017-08-03] MEDS: metoprolol tartrate 50mg tablet PO SCH ×2 (08:12→19:29)
[2017-08-03] MEDS: multivitamins, therapeutics tablet PO SCH (08:12)
[2017-08-03] MEDS: carVEDilol 12.5mg tablet PO SCH ×2 (08:12→19:29)
[2017-08-03] MEDS: lactobacillus rhamnosus 10,000 MMU CELLS/CAPSULE PO SCH ×2 (08:12→19:29)
[2017-08-03] MEDS: acetaminophen 325mg tablet PO PRN (08:14)
[2017-08-03] MEDS: folic acid 1mg tablet OGT SCH (08:16)
[2017-08-03] MEDS: cloNIDine 0.1 mg tablet PO SCH ×4 (08:16→23:48)
[2017-08-03] MEDS: heparin, porcine 5000 units/ml vial SQ SCH ×2 (08:17→20:17)
[2017-08-03] MEDS: levoFLOXACIN/D5W 500mg/100ml bag IV SCH (11:33)
[2017-08-03] MEDS ORDERED: naloxone 0.4 mg/ml inj IV ONE (11:50)
[2017-08-03] MEDS: dextrose 5%-1/2 normal saline 1,000 ML IV SCH ×3 (12:43→22:14)
[2017-08-03 15:22] LABS: BASOPHILS % (AUTO) 0.1 % (0-1); EOSINOPHILS # (AUTO) 0.2 X10'3 (0-0.9); EOSINOPHILS % (AUTO) 1.6 % (0-6); HEMOGLOBIN 15.2 g/dl (14.0-17.9); LYMPHOCYTES # (AUTO) 0.5 X10'3 (1.1-4.8); LYMPHOCYTES % (AUTO) 3.8 % (21-51); MEAN CORPUSCULAR HEMOGLOBIN 35.4 PG (27.0-31.0); MEAN CORPUSCULAR HGB CONC 33.8 % (33.0-36.5); MEAN CORPUSCULAR VOLUME 104.8 FL (78-98); MEAN PLATELET VOLUME 7.5 FL (7.4-10.4); MONOCYTES # (AUTO) 0.5 X10'3 (0-0.9); MONOCYTES % (AUTO) 4.3 % (2-12); NEUTROPHILS # (AUTO) 10.8 X10'3 (1.8-7.7); NEUTROPHILS % (AUTO) 90.2 % (42-75); PLATELET COUNT 219 X10'3 (140-440); RED BLOOD COUNT 4.29 X10'6 (4.70-6.10); RED CELL DISTRIBUTION WIDTH 15.4 % (11.5-14.5)
[2017-08-03 15:33] LABS: PARTIAL THROMBOPLASTIN TIME 23 SECONDS (22-32)
[2017-08-03 15:37] LABS: ALANINE AMINOTRANSFERASE 85 U/L (12-78); ALBUMIN 2.6 G/DL (3.4-5.0); ALBUMIN/GLOBULIN RATIO 0.8 (1.1-1.5); ALKALINE PHOSPHATASE 73 IU/L (46-116); ANION GAP 7 (8-16); ASPARTATE AMINO TRANSFERASE 23 U/L (10-37); BILIRUBIN,TOTAL 0.8 MG/DL (0.1-1.0); BLOOD UREA NITROGEN 22 MG/DL (7-18); BUN/CREATININE RATIO 24.7 (5.4-32.0); CALCIUM 8.5 MG/DL (8.5-10.1); CHLORIDE 103 MMOL/L (99-107); CREATININE 0.89 MG/DL (0.60-1.10); GLUCOSE 109 MG/DL (70-104); MAGNESIUM 2.3 MG/DL (1.5-2.4); POTASSIUM 4.2 MMOL/L (3.5-5.1); PREALBUMIN 29.4 MG/DL (19-36); SODIUM 142 MMOL/L (135-145); TOTAL CARBON DIOXIDE 31.7 MMOL/L (24-32); TOTAL PROTEIN 5.9 G/DL (6.4-8.2); eGFR 88 ML/MIN
[2017-08-03] MEDS: hydrALAZINE 20mg/ml inj. IV PRN (19:40)
[2017-08-03] MEDS: enalaprilat dihydrate 2.5mg/2ml vial IV PRN (23:05)
[2017-08-04] VITALS (7 sets, daily range): BP systolic 87–164; BP diastolic 45–91
[2017-08-04] MEDS: chlordiazePOXIDE 25mg capsule PO SCH ×4 (02:00→21:10)
[2017-08-04] MEDS: albuterol 2.5 MG/3 ML nebule NEB SCH ×6 (03:35→23:54)
[2017-08-04 05:42] LABS: PARTIAL THROMBOPLASTIN TIME 23 SECONDS (22-32)
[2017-08-04 05:47] LABS: BASOPHILS % (AUTO) 0.1 % (0-1); EOSINOPHILS # (AUTO) 0.2 X10'3 (0-0.9); EOSINOPHILS % (AUTO) 1.7 % (0-6); HEMATOCRIT 45.9 % (42.0-52.0); HEMOGLOBIN 15.6 g/dl (14.0-17.9); LYMPHOCYTES % (AUTO) 7.4 % (21-51); MEAN CORPUSCULAR HEMOGLOBIN 35.1 PG (27.0-31.0); MEAN CORPUSCULAR VOLUME 103.5 FL (78-98); MEAN PLATELET VOLUME 7.7 FL (7.4-10.4); MONOCYTES # (AUTO) 0.9 X10'3 (0-0.9); MONOCYTES % (AUTO) 6.8 % (2-12); NEUTROPHILS # (AUTO) 11.2 X10'3 (1.8-7.7); PLATELET COUNT 227 X10'3 (140-440); RED BLOOD COUNT 4.43 X10'6 (4.70-6.10); RED CELL DISTRIBUTION WIDTH 14.8 % (11.5-14.5); WHITE BLOOD COUNT 13.4 X10'3 (4.5-11.0)
[2017-08-04 06:07] LABS: ALANINE AMINOTRANSFERASE 80 U/L (12-78); ALBUMIN 2.8 G/DL (3.4-5.0); ALBUMIN/GLOBULIN RATIO 0.8 (1.1-1.5); ALKALINE PHOSPHATASE 74 IU/L (46-116); ANION GAP 9 (8-16); ASPARTATE AMINO TRANSFERASE 27 U/L (10-37); BILIRUBIN,TOTAL 0.8 MG/DL (0.1-1.0); BLOOD UREA NITROGEN 16 MG/DL (7-18); BUN/CREATININE RATIO 19.8 (5.4-32.0); CALCIUM 8.5 MG/DL (8.5-10.1); CHLORIDE 104 MMOL/L (99-107); CREATININE 0.81 MG/DL (0.60-1.10); GLUCOSE 89 MG/DL (70-104); POTASSIUM 3.6 MMOL/L (3.5-5.1); SODIUM 142 MMOL/L (135-145); TOTAL CARBON DIOXIDE 28.8 MMOL/L (24-32); TOTAL PROTEIN 6.1 G/DL (6.4-8.2); eGFR > 90 ML/MIN
[2017-08-04] MEDS: dextrose 5%-1/2 normal saline 1,000 ML IV SCH ×2 (07:50→11:20)
[2017-08-04] MEDS: multivitamins, therapeutics tablet PO SCH (08:00)
[2017-08-04] MEDS: lactobacillus rhamnosus 10,000 MMU CELLS/CAPSULE PO SCH ×2 (08:00→21:10)
[2017-08-04] MEDS: docusate sodium 100mg/10ml UD cup PO SCH ×2 (08:00→21:11)
[2017-08-04] MEDS: HYDROcodone/acetaminophen 10/325mg tab PO PRN ×4 (08:00→21:25)
[2017-08-04] MEDS: thiamine 100mg tablet OGT SCH (08:01)
[2017-08-04] MEDS: carVEDilol 12.5mg tablet PO SCH ×2 (08:01→20:00)
[2017-08-04] MEDS: folic acid 1mg tablet OGT SCH (08:01)
[2017-08-04] MEDS: metoprolol tartrate 50mg tablet PO SCH ×2 (08:01→20:00)
[2017-08-04] MEDS: pantoprazole 40mg Tablet.DR PO SCH (08:01)
[2017-08-04] MEDS: cloNIDine 0.1 mg tablet PO SCH ×2 (08:02→16:29)
[2017-08-04] MEDS: heparin, porcine 5000 units/ml vial SQ SCH ×2 (08:03→21:11)
[2017-08-04] MEDS: methylPREDNISolone sod succ/PF 40mg inj. IV SCH (08:03)
[2017-08-04] MEDS: levoFLOXACIN/D5W 500mg/100ml bag IV SCH (11:19)
[2017-08-05 02:00] VITALS: BP 121/67
[2017-08-05] MEDS: chlordiazePOXIDE 25mg capsule PO SCH ×2 (02:08→07:57)
[2017-08-05] MEDS: HYDROcodone/acetaminophen 10/325mg tab PO PRN ×2 (02:09→07:58)
[2017-08-05] MEDS: acetaminophen 325mg tablet PO PRN (02:21)
[2017-08-05] MEDS: albuterol 2.5 MG/3 ML nebule NEB SCH ×2 (04:12→08:31)
[2017-08-05 05:40] LABS: BASOPHILS % (AUTO) 0.2 % (0-1); EOSINOPHILS # (AUTO) 0.4 X10'3 (0-0.9); EOSINOPHILS % (AUTO) 3.3 % (0-6); HEMATOCRIT 39.8 % (42.0-52.0); HEMOGLOBIN 13.6 g/dl (14.0-17.9); LYMPHOCYTES # (AUTO) 1.3 X10'3 (1.1-4.8); LYMPHOCYTES % (AUTO) 10.5 % (21-51); MEAN CORPUSCULAR HEMOGLOBIN 35.7 PG (27.0-31.0); MEAN CORPUSCULAR HGB CONC 34.3 % (33.0-36.5); MEAN CORPUSCULAR VOLUME 104.4 FL (78-98); MONOCYTES # (AUTO) 0.7 X10'3 (0-0.9); MONOCYTES % (AUTO) 5.2 % (2-12); NEUTROPHILS # (AUTO) 10.2 X10'3 (1.8-7.7); NEUTROPHILS % (AUTO) 80.8 % (42-75); PLATELET COUNT 177 X10'3 (140-440); RED BLOOD COUNT 3.81 X10'6 (4.70-6.10); RED CELL DISTRIBUTION WIDTH 14.9 % (11.5-14.5); WHITE BLOOD COUNT 12.6 X10'3 (4.5-11.0)
[2017-08-05 05:57] LABS: PARTIAL THROMBOPLASTIN TIME 22 SECONDS (22-32)
[2017-08-05 06:00] VITALS: BP 127/70
[2017-08-05 06:12] LABS: ALANINE AMINOTRANSFERASE 66 U/L (12-78); ALBUMIN 2.5 G/DL (3.4-5.0); ALBUMIN/GLOBULIN RATIO 0.8 (1.1-1.5); ALKALINE PHOSPHATASE 65 IU/L (46-116); ANION GAP 8 (8-16); ASPARTATE AMINO TRANSFERASE 24 U/L (10-37); BILIRUBIN,TOTAL 0.5 MG/DL (0.1-1.0); BLOOD UREA NITROGEN 19 MG/DL (7-18); BUN/CREATININE RATIO 18.3 (5.4-32.0); CALCIUM 8.5 MG/DL (8.5-10.1); CHLORIDE 104 MMOL/L (99-107); CREATININE 1.04 MG/DL (0.60-1.10); GLUCOSE 110 MG/DL (70-104); MAGNESIUM 1.8 MG/DL (1.5-2.4); POTASSIUM 3.5 MMOL/L (3.5-5.1); SODIUM 140 MMOL/L (135-145); TOTAL CARBON DIOXIDE 28.3 MMOL/L (24-32); TOTAL PROTEIN 5.6 G/DL (6.4-8.2); eGFR 73 ML/MIN
[2017-08-05] MEDS: pantoprazole 40mg Tablet.DR PO SCH (07:55)
[2017-08-05] MEDS: thiamine 100mg tablet OGT SCH (07:56)
[2017-08-05] MEDS: docusate sodium 100mg/10ml UD cup PO SCH (07:56)
[2017-08-05] MEDS: folic acid 1mg tablet OGT SCH (07:56)
[2017-08-05] MEDS: methylPREDNISolone sod succ/PF 40mg inj. IV SCH (07:56)
[2017-08-05] MEDS: metoprolol tartrate 50mg tablet PO SCH (07:57)
[2017-08-05] MEDS: lactobacillus rhamnosus 10,000 MMU CELLS/CAPSULE PO SCH (07:57)
[2017-08-05] MEDS: multivitamins, therapeutics tablet PO SCH (07:57)
[2017-08-05] MEDS: carVEDilol 12.5mg tablet PO SCH (08:00)
[2017-08-05] MEDS: cloNIDine 0.1 mg tablet PO SCH ×2 (08:00)
[2017-08-05] MEDS: heparin, porcine 5000 units/ml vial SQ SCH (08:07)
[2017-08-05] MEDS ORDERED: MULT-1179 PO (10:47)
[2017-08-05] MEDS ORDERED: CARV-50 PO (10:47)
[2017-08-05] MEDS ORDERED: WALKERFR (10:47)
[2017-08-05] MEDS ORDERED: NITROFURANTOIN PO (11:03)
[2017-08-05] MEDS ORDERED: levoFLOXACIN 500mg tablet PO SCH (11:30)
[2017-08-06] MEDS ORDERED: levoFLOXACIN 500mg tablet PO SCH (11:00)
== END 2017-08-05 12:45 | disposition home or self-care (01) | DRG 870 ==
LOC: ER 20:04 → ED HOLD 23:42 → ICU 2S 07-25 00:47 → ORTHO 4S 08-01 17:23 → PCU 3S 08-02 22:05
PROVIDERS: ADMIT Internal Medicine Critical Care Medicine; ATTEND Internal Medicine Critical Care Medicine
PROC: 5A1955Z Respiratory Ventilation, Greater than 96 Consecutive Hours (ICD-10-PCS; principal; 2017-07-24)
PROC: 0BH17EZ Insertion of Endotracheal Airway into Trachea, Via Natural or Artificial Opening (ICD-10-PCS; 2017-07-24)
DX: A41.9 Sepsis, unspecified organism (principal); J96.01 Acute respiratory failure with hypoxia; J44.1 Chronic obstructive pulmonary disease with (acute) exacerbation; J96.02 Acute respiratory failure with hypercapnia; E87.2 Acidosis; F10.239 Alcohol dependence with withdrawal, unspecified; F10.229 Alcohol dependence with intoxication, unspecified; F11.90 Opioid use, unspecified, uncomplicated; F15.90 Other stimulant use, unspecified, uncomplicated; G89.29 Other chronic pain; F17.200 Nicotine dependence, unspecified, uncomplicated; Z95.1 Presence of aortocoronary bypass graft; Z90.89 Acquired absence of other organs; Z90.5 Acquired absence of kidney; Z88.0 Allergy status to penicillin; Z88.2 Allergy status to sulfonamides; Z79.899 Other long term (current) drug therapy; Z87.442 Personal history of urinary calculi; Z86.19 Personal history of other infectious and parasitic diseases; Z85.9 Personal history of malignant neoplasm, unspecified
CPT/HCPCS: 36415; 36600; 70450; 71045; 80053; 80202; 80305; 80320; 81001; 82140; 82803; 82948; 83605; 83735; 83880; 84100; 84134; 84145; 84443; 84484; 85018; 85025; 85610; 85730; 87040; 87070; 87077; 87185; 87502; 87503; 92616; 93005; 93306; 94002; 94003; 94640; 94760; 96365; 96375; 96376; 97110; 97116; 97161; 97530; 99291; A4315; A4353; A6213; A6258; A7015; C1758; C9113; J0330; J0360; J1644; J1956; J2060; J2185; J2250; J2270; J2310; J2704; J2920; J2930; J3370; J3411; J3486; J3490; J7030; J7060

== ENCOUNTER 2017-08-28 19:08 | Emergency (ER) | payer OTHER ==
[~2017-08-28] VITALS: Ht 175.3 cm; Wt 77.0 kg
[~2017-08-28 19:08] MED LIST changes: +ALBU8HFA PO; -AMLO10TA28 PO; -AMLO5TAB16 PO; -AZIT250T PO; +BUDE10.22 INH; +CARV-50 PO; +CETI10TA15 PO; -LIDO700A5 TOP; -METO50TA16 PO; +MULT-1179 PO; -MULT-933 PO; +NITROFURANTOIN PO; -PRED10TA PO; +PRED20TA PO; +WALKERFR; -etomidate 2mg/ml inj. ONE; -rocuronium 10mg/ml inj IV ONE
[2017-08-28] MEDS ORDERED: ipratropium/albuterol 3ml nebule NEB ONE (19:20)
[2017-08-28] MEDS ORDERED: predniSONE 20 mg tablet PO ONE (19:20)
[2017-08-28 20:25] VITALS: BP 120/83
[2017-08-28 21:25] LABS: ABG BASE EXCESS -1.7 mmol/L (-2.0-3.0); ABG HCO3 21.4 mmol/L (22.0-26.0); ABG OXYGEN SATURATION 93.7 % (95-98); ABG PCO2 (T) 31.5 mmHg (35.0-48.0); ABG PO2 (T) 69.4 mmHg (83-108); ALLEN'S TEST Positive; FMetHb 0.1 % (0.3-1.12); FO2Hb 92.7 % (94-100); PATIENT TEMPERATURE 36.9; TOTAL HEMOGLOBIN 14.3 G/dl (14.0-18.0)
[2017-08-28] MEDS ORDERED: ALBU6.7H INH (21:41)
== END 2017-08-28 21:57 | disposition home or self-care (01) ==
LOC: ER 19:08
DX: J98.01 Acute bronchospasm (principal); J44.9 Chronic obstructive pulmonary disease, unspecified; G89.29 Other chronic pain; Z95.1 Presence of aortocoronary bypass graft; F15.10 Other stimulant abuse, uncomplicated; Z88.0 Allergy status to penicillin; Z88.2 Allergy status to sulfonamides; Z79.899 Other long term (current) drug therapy; Z60.2 Problems related to living alone; Z56.0 Unemployment, unspecified
CPT/HCPCS: 36600; 82803; 85018; 94640; 94760; 99283; J7512